=== PATIENT | male | born 1995 | race African-American/Black ===

== ENCOUNTER 2019-07-26 13:03 | Emergency (ER) | payer SELFPAY ==
[2019-07-26 13:12] VITALS: BP 128/78
[2019-07-26] MEDS ORDERED: DIPHENHYDRAMINE HCL 25 MG CAPSULE PO ONE (13:50)
[2019-07-26] MEDS ORDERED: KETOROLAC TROMETHAMINE 60 MG/2 ML SDV IM ONE (13:50)
[2019-07-26] MEDS ORDERED: METOCLOPRAMIDE HCL 10 MG TABLET PO ONE (13:50)
--- NOTE | 2019-07-26 13:51 | ER Document Report ---
ED Medical Screen (RME) - General Chief Complaint: Headache Stated Complaint: HEADACHE Time Seen by Provider: 07/26/19 13:47 Primary Care Provider: ASTER SPENCER PA [Primary Care Provider] - Follow up as needed Mode of Arrival: Ambulatory Information source: Patient Notes: 23-year-old male presents with right temporal headache sharp like an ice pick at times for the past 3 days. Reports he is light sensitive. Denies history of trauma. Denies history of migraines. No other complaints such as nausea vomiting diarrhea. Patient also mentions that he cracked a tooth couple days ago and wondered if it is connected to his headache. He has taken [id number]-[id number] medications without relief of symptoms. Patient is alert and oriented no obvious neuro deficit. I have greeted and performed a rapid initial assessment of this patient. A comprehensive ED assessment and evaluation of the patient, analysis of test results and completion of the medical decision making process will be conducted by additional ED providers. - Related Data Allergies/Adverse Reactions: No Known Allergies Allergy (Verified 07/26/19 13:44) Physical Exam - Vital signs Vitals: Temp Pulse Resp BP Pulse Ox 98.8 F 68 16 128/78 H 98 07/26/19 13:11 07/26/19 13:11 07/26/19 13:11 07/26/19 13:11 07/26/19 13:11 Course - Vital Signs Vital signs: Temp Pulse Resp BP Pulse Ox 98.8 F 68 16 128/78 H 98 07/26/19 13:11 07/26/19 13:11 07/26/19 13:11 07/26/19 13:11 07/26/19 13:11 Doctor's Discharge - Discharge Referrals: ASTER SPENCER PA [Primary Care Provider] - Follow up as needed
--- NOTE | 2019-07-26 15:26 | ER Document Report ---
ED General - General Chief Complaint: Headache >24 hrs old Stated Complaint: HEADACHE Time Seen by Provider: 07/26/19 13:47 Primary Care Provider: ASTER SPENCER PA [Primary Care Provider] - Follow up as needed Mode of Arrival: Ambulatory Notes: triage note; c/o right temporal LEON, pt states complaint x 2 days and continues from unknown cause. pt states intermittent light sensitivity without visual disturbance, pt denies numbness/tingling, no N/V, pt presenting neurologically intake. pt also reported he "did crack a tooth on the right lower jaw when head pain did start and didn't know if that may be helping cause complaint". Anahi Burns CANCELING MACHINE OPERATOR assessing complaint and discussing continued POC with pt Pat CANCELING MACHINE OPERATOR notes 23-year-old male presents with right temporal headache sharp like an ice pick at times for the past 3 days. Reports he is light sensitive. Denies history of trauma. Denies history of migraines. No other complaints such as nausea vomiting diarrhea. Patient also mentions that he cracked a tooth couple days ago and wondered if it is connected to his headache. He has taken macf-yyi-hbqmdiu medications without relief of symptoms. Patient is alert and oriented no obvious neuro deficit. TRAVEL OUTSIDE OF THE [place] IN LAST 30 DAYS: No - HPI Onset: Yesterday Quality of pain: Achy Severity: Mild Pain Level: 1 Associated symptoms: None Exacerbated by: Denies Similar symptoms previously: No Recently seen / treated by doctor: No - Related Data Allergies/Adverse Reactions: No Known Allergies Allergy (Verified 07/26/19 13:44) Past Medical History - General Information source: Patient - Social History Smoking Status: Current Every Day Smoker Cigarette use (# per day): No Chew tobacco use (# tins/day): No Smoking Education Provided: No Frequency of alcohol use: Rare Drug Abuse: Marijuana Lives with: Family Family History: Reviewed & Not Pertinent Patient has suicidal ideation: No Patient has homicidal ideation: No Review of Systems - Review of Systems Constitutional: No symptoms reported EENT: See HPI, Mouth pain, Dental problem Cardiovascular: No symptoms reported Respiratory: No symptoms reported Gastrointestinal: No symptoms reported Genitourinary: No symptoms reported Male Genitourinary: No symptoms reported Musculoskeletal: No symptoms reported Skin: No symptoms reported Hematologic/Lymphatic: No symptoms reported Neurological/Psychological: No symptoms reported Physical Exam - Vital signs Vitals: Temp Pulse Resp BP Pulse Ox 98.8 F 68 16 128/78 H 98 07/26/19 13:11 07/26/19 13:11 07/26/19 13:11 07/26/19 13:11 07/26/19 13:11 Interpretation: Normal - General General appearance: Appears well - HEENT Head: Normocephalic Eyes: Normal Conjunctiva: Normal Cornea: Normal Extraocular movements intact: Yes Eyelashes: Normal Pupils: PERRL Mouth/Lips: Caries, Dental fracture Mucous membranes: Normal Neck: Normal - Respiratory Respiratory status: No respiratory distress Chest status: Nontender Breath sounds: Normal Chest palpation: Normal - Cardiovascular Rhythm: Regular Heart sounds: Normal auscultation Murmur: No Friction rub: No Pastora's crunch: No - Abdominal Inspection: Normal Distension: No distension Bowel sounds: Normal Tenderness: Nontender Organomegaly: No organomegaly - Back Back: Normal - Extremities General upper extremity: Normal inspection General lower extremity: Normal inspection - Neurological Neuro grossly intact: Yes Cognition: Normal Orientation: AAOx4 Maria Elena Coma Scale Eye Opening: Spontaneous Rose Coma Scale Verbal: Oriented Maria Elena Coma Scale Motor: Obeys Commands Maria Elena Coma Scale Total: 15 Speech: Normal Cranial nerves: Normal Cerebellar coordination: Normal Motor strength normal: LUE, RUE, LLE, RLE - Psychological Associated symptoms: Normal affect - Skin Skin Temperature: Warm Skin Moisture: Dry Course - Vital Signs Vital signs: Temp Pulse Resp BP Pulse Ox 98.8 F 68 16 128/78 H 98 07/26/19 13:11 07/26/19 13:11 07/26/19 13:11 07/26/19 13:11 07/26/19 13:11 Discharge - Discharge Referrals: ASTER SPENCER PA [Primary Care Provider] - Follow up as needed
[2019-07-26] MEDS ORDERED: LIDOCAINE 2% VISCOUS SOLN 15 ML UDCUP PO ONE (15:45)
--- NOTE | 2019-07-26 15:46 | ER Document Report ---
HPI - HPI Time Seen by Provider: 07/26/19 13:47 Pain Level: 5 Notes: Patient is a 23-year-old male no significant past medical history presents complaint of right temporal headache that is been present for the past 3 days. Patient describes as a sharp pain. This is not the worst headache of his life and did not start as a thunderclap. He did have light sensitivity and occasional nausea. He does not have any nausea or vomiting at this time. Patient states that he does have a cracked tooth to #30 over the past 1 to 2 weeks and believes this is the source of his pain overall. Patient states that he has noted some swelling over the past day or so. He has not noticed any drainage or abscess otherwise. He is able to eat and drink without difficulty. He is urinating normally. Denies any fever, head injury, neck pain, changes in vision/speech/mentation/hearing, URI, sore throat, chest pain, palpitations, syncope, cough, shortness of breath, wheeze, dyspnea, abdominal pain, nausea/vomiting/diarrhea, urinary retention, dysuria, hematuria, loss of control of bowel or bladder, numbness/tingling, saddle anesthesia, muscle paralysis/weakness, or rash. He received meds at triage and his ELON has completely resolved. Pt ready to go home, but needs work note. - ROS Systems Reviewed and Negative: Yes All other systems reviewed and negative Past Medical History - General Information source: Patient - Social History Smoking Status: Current Every Day Smoker Chew tobacco use (# tins/day): No Frequency of alcohol use: Rare Drug Abuse: Marijuana Family History: Reviewed & Not Pertinent Patient has suicidal ideation: No Patient has homicidal ideation: No Vertical Provider Document - CONSTITUTIONAL Agree With Documented VS: Yes Notes: PHYSICAL EXAMINATION: GENERAL: Well-appearing, well-nourished and in no acute distress. A&Ox4. Answers questions appropriately. HEAD: Atraumatic, normocephalic. Non-tender. EYES: Pupils equal round and reactive to light, extraocular movements intact, sclera anicteric, conjunctiva are normal. No nystagmus. vis nieto intact. EAC clear b/l. TM's intact b/l without erythema, fluid, or perforation. Nares patent and without discharge. oropharynx clear without exudates. No tonsilar hypertrophy or erythema. Moist mucous membranes. No sinus tenderness. Uvula midline. No palatine shift. No tongue protrusion. No respiratory compromise. Mouth: Poor dentition. + mild decay and mild gingivitis. No obvious abscess or discharge noted. No facial swelling. + tenderness to tooth #30. NECK: Normal range of motion, supple without lymphadenopathy. No rigidity/meningismus. No midline tenderness. LUNGS: Breath sounds clear to auscultation bilaterally and equal. No wheezes rales or rhonchi. HEART: Regular rate and rhythm without murmurs, rubs, gallops. ABDOMEN: Soft, nontender, nondistended abdomen. No guarding, no rebound. Normal bowel sounds present. No CVA tenderness bilaterally. Musculoskeletal: Ext b/l: FROM to passive/active. Strength 5+/5. No deficits noted. No bony tenderness of extremities. Extremities: No cyanosis, clubbing, or edema b/l. Peripheral pulses 2+. Capillary refill less than 2 seconds. NEUROLOGICAL: NIH 0. GCS 15. Cranial nerves grossly intact. Normal speech, normal gait. Normal sensory, motor exams. Reflexes 2+ b/l. DEZ's negative. Pronator drift negative. Heel/villatoro, finger/nose wnl. Romberg neg. PSYCH: Normal mood, normal affect. SKIN: Warm, Dry, normal turgor, no rashes or lesions noted. - INFECTION CONTROL TRAVEL OUTSIDE OF THE [place] IN LAST 30 DAYS: No Course - Re-evaluation Re-evalutation: 07/26/19 15:43 Patient is an afebrile, well-hydrated, 23-year-old male who presents to the ED with a headache, suspect benign, and dental pain which I suspect. No other etiology versus infection. Vitals are acceptable without any significant tachycardia, tachypnea, or hypoxia. PE is otherwise unremarkable for any focal neurological deficits. NIH 0, GCS 15, cranial nerves grossly intact. No labs or imaging warranted at this time based on H&P. Patient was given Toradol, Reglan, and benadryl which has resolved his headache. Patient states that she is feeling much better and would like to go home. She is nontoxic-appearing and is tolerating p.o. without any difficulties. Low suspicion for any acute glaucoma, temporal arteritis, meningitis, intracranial hemorrhage, ischemic stroke, morgan's, abscess, airway compromise, or fracture at this time. Patient is aware that this condition can change from initial presentation and that he needs to monitor symptoms closely for any acute changes. Pt sent home with lidocaine and penicillin. Recheck with your PCM/neurologist in 3-5 days. Return to the ED with any worsening/concerning symptoms otherwise as reviewed in discharge. Patient is in agreement. - Vital Signs Vital signs: Temp Pulse Resp BP Pulse Ox 98.8 F 68 16 128/78 H 98 07/26/19 13:11 07/26/19 13:11 07/26/19 13:11 07/26/19 13:11 07/26/19 13:11 Discharge - Discharge Clinical Impression: Pain, dental Headache Qualifiers: Headache type: unspecified Headache chronicity pattern: acute headache Intractability: not intractable Qualified Code(s): R51 - Headache Condition: Stable Disposition: HOME, SELF-CARE Instructions: Headache ([facility]), Penicillin V K ([facility]), Toothache ([facility]) Additional Instructions: [place] and floss twice daily Maintain fluid intake Take antibiotics as directed Mouthwash, salt water gargles, peroxide rinse as needed Tylenol/ibuprofen as needed Recheck with PCM this week Call today/tomorrow and schedule an appointment with your dentist for further evaluation Return to the ED with any worsening symptoms and/or development of fever, headache, facial swelling, swelling of lips/tongue/throat, trouble swallowing, drooling, hoarseness, neck pain/stiffness, chest pain, palpitations, syncope, shortness of breath, trouble breathing, abdominal pain, n/v/d, numbness/tingling, or other worsening symptoms that are concerning to you. Prescriptions: Ibuprofen [Motrin 800 mg Tablet] 800 mg PO Q8H PRN #15 tab PRN Reason: Penicillin V Potassium [Penicillin Vk 250 mg Tablet] 500 mg PO BID #40 tablet Forms: Elevated Blood Pressure, Smoking Cessation Education, Return to Work Referrals: ASTER SPENCER PA [Primary Care Provider] - Follow up as needed [facility] [Provider Group] - Follow up as needed
== END 2019-07-26 16:02 | disposition home or self-care (01) ==
LOC: ER 13:03
DX: R51 Headache (principal); K02.9 Dental caries, unspecified; K05.10 Chronic gingivitis, plaque induced; F17.200 Nicotine dependence, unspecified, uncomplicated; F12.10 Cannabis abuse, uncomplicated; H53.149 Visual discomfort, unspecified; R11.0 Nausea
CPT/HCPCS: 99284; 96372; J1885; J3490